=== PATIENT | male | born 1975 | race Caucasian/White ===

== ENCOUNTER → 2019-08-31 | Outpatient (CLI) | payer OTHER ==
--- NOTE | 2019-08-31 11:47 | PCVCIMAG ---
APPROVED REPORT Study performed: 08/31/2019 10:57:57 Exam: Stress Echocardiogram Indication: Chest pain , Palpitations Patient Location: Echo lab Stress Nurse: Nan Villatoro RN Status: routine Ht: 6 ft 1 in HR: 103 bpm BP: 122/82 mmHg Rhythm: Tachycardia Procedure The patient underwent an Exercise Stress Test using the Norberto Protocol. Blood pressure, heart rate, and EKG were monitored. An Echocardiogram was performed by area intelligence technician in four stages in quad fashion. At peak stress, four selected images were obtained and placed side by side with resting images for comparison. Stress Test Details Stress Test: Exercise stress testing was performed using a Norberto protocol. HR Resting HR: 103 bpmMax Heart Rate (APMHR): 176 bpm Max HR Achieved: 193 bpmTarget HR (85% APMHR): 149 bpm % of APMHR: 109 Recovery HR: 120 bpm HR response to stress: Normal HR response to stress BP Resting BP: 122/82 mmHg Max BP: 168/82 mmHg Recovery BP: 124/78 mmHg BP response to stress: Normal blood pressure response to stress. ECG Resting ECG: Sinus Tachycardia Stress ECG: Sinus Rhythm ST Change: Normal Arrhythmia: occasional PVCs Recovery ECG: Sinus Rhythm Recovery ST Change: Normal Recovery Arrhythmia: PVC Clinical Reason for Termination: Maximal effort Stress Symptoms: Dyspnea Exercise duration: 8 min 28 sec Highest Stage Achieved: Stage 3: 3.4 mph at 14% grade. Exercise capacity: 10.1 METs Overall Exercise Capacity for Age: Normal Scale: Sedentary Angina Score: None Stress ECG Conclusion 1. subjectively negative for ischemia 2. electrocardiographically negative for ischemia 3. average functional capacity Pre-Stress Echo The resting Echocardiogram showed normal left ventricular contractility with an estimated Ejection Fraction of about >55%. The resting echocardiogram demonstrated normal wall motion in all wall segments. Post-Stress Echo The stress Echocardiogram showed normal left ventricular contractility with an estimated Ejection Fraction of about 65-70%. Compared to rest, there were no stress-induced wall motion abnormalities. Clinical No clinical or ECG evidence for ischemia. Conclusion Clinical Response: Non-ischemic Exercise Capacity: Average Stress ECG Response: Non-ischemic Stress Echo Images: Non-ischemic The left ventricle is normal in size and wall thickness in both the rest and stress images. Normal color doppler. No stenosis or regurgitation seen in the mitral, aortic,tricuspid or pulmonic valves. 1. low risk study <Conclusion> The left ventricle is normal in size and wall thickness in both the rest and stress images. Normal color doppler. No stenosis or regurgitation seen in the mitral, aortic,tricuspid or pulmonic valves. 1. low risk study
== END | disposition home or self-care (01) ==
LOC: PCVCIMAG 10:50
PROVIDERS: ATTEND Internal Medicine
DX: R00.2 Palpitations (principal)
CPT/HCPCS: 93325; 93351